=== PATIENT | male | born 1950 | race Caucasian/White ===

== ENCOUNTER 2017-02-01 13:38 | Inpatient (IN) | payer OTHER, MEDICARE ==
[~2017-02-01] VITALS: Ht 167.6 cm; Wt 72.0 kg
[2017-02-04] MEDS ORDERED: AMPI500C8 PO (11:46)
[2017-02-04] MEDS ORDERED: ROSU1TAB8 PO (12:54)
[2017-02-04] MEDS ORDERED: LISI-519 PO (13:03)
[2017-02-04] MEDS ORDERED: METH2.5T PO (13:04)
[2017-02-04] MEDS ORDERED: NAPR500T PO (13:04)
[2017-02-04] MEDS ORDERED: CENTCHW4 PO (13:05)
[2017-02-04] MEDS ORDERED: CO Q10CA PO (13:09)
[2017-02-04] MEDS ORDERED: ACET25TA2 PO (13:09)
[2017-02-04] MEDS ORDERED: MSM1000C PO (13:09)
[2017-02-04] MEDS ORDERED: FOLI1TAB6 PO (13:09)
[2017-02-17] MEDS ORDERED: CHLORHEXIDINE GLUCONATE 2 % 1 PACK (2 CLOTHS) TOPICAL PRN (05:45)
[2017-02-17] MEDS ORDERED: LACTATED RINGER'S 1000 ML IV PRN (05:45)
[2017-02-17] MEDS ORDERED: ceFAZolin 2 GM PREMIX 50 ML IV SCH (05:45)
[2017-02-17] MEDS ORDERED: VANCOMYCIN 1000 MG/NS 250 ML (for <70 kg) IV SCH ×2 (05:45)
[2017-02-17] MEDS ORDERED: POVIDONE IODINE 5% (ANTISEPSIS KIT) 4 APPLICATIONS EACH NARE PRN (05:45)
[2017-02-17] MEDS ORDERED: SODIUM CHLORID 0.9% 500 ML IV PRN (05:45)
[2017-02-17] MEDS ORDERED: INSULIN HUMAN REGULAR 1,000 UNITS/10 ML VIAL SQ PRN (05:45)
[2017-02-17] MEDS ORDERED: CHLORHEXIDINE GLUCONATE 4% SOLN 120 ML BTL TOPICAL SCH (05:45)
[2017-02-17] MEDS ORDERED: METOPROLOL TARTRATE 25 MG TAB PO PRN (05:45)
[2017-02-17] MEDS ORDERED: GENTAMICIN SULFATE 80 MG/2 ML VIAL ONE (06:27)
[2017-02-17] MEDS ORDERED: VANCOMYCIN HCL 1000 MG VIAL ONE (06:28)
[2017-02-17 06:36] LABS: BLOOD, URINE NEG (NEG); GLUCOSE,URINE NEG (NEG); KETONE, URINE NEG (NEG); NITRITE,URINE NEG (NEG); URINE COLOR YELLOW (YELLW/STRAW)
[2017-02-17 06:37] LABS: COMMENT (UR) CATH-CULT NOT IND; CULTURE IF INDICATED CATH CULTURE NOT IND
[2017-02-17] MEDS ORDERED: EXPAREL PERI-ARTICULAR INJECTION (TOTAL VOL. 60 ML) P-ARTICULR SCH ×2 (07:00)
[2017-02-17] MEDS ORDERED: TRANEXAMIC ACID INJ 1,080 MG in SODIUM CHLORIDE 0.9% INJ 100 ML IV SCH (07:00)
--- NOTE | 2017-02-17 09:23 | RADRPT ---
EXAM DATE/TIME: 02/17/2017 07:23 [facility] COMPARISON: No previous studies available for comparison. INDICATIONS : Left total hip arthroplasty. MEDICAL HISTORY : None. SURGICAL HISTORY : None. ENCOUNTER: Initial ACUITY: 1 day PAIN SCORE: Non-responsive. LOCATION: Left hip. FINDINGS: Total hip arthroplasty is in place. The femoral and acetabular components appear intact. There are no signs of loosening or fracture. CONCLUSION: Intact total hip prosthesis for tacho. Darvin Rich MD on February 17, 2017 at 9:21 Board Certified Radiologist. This report was verified electronically.
--- NOTE | 2017-02-17 09:25 | PD.OP ---
cc: Idris Meyers MD Operative Report Date of Surgery: Feb 17, 2017 Preoperative Diagnosis: Severe left hip osteoarthritis Postoperative Diagnosis: Procedure: Left total hip arthroplasty by anterior approach Surgeon: Idris Meyers [place] Operator(s): Reece Kuhn PA-C The surgical procedure was assisted by my physician clinical project assistant. My P.A. presence was necessary throughout this case for the manipulation and positioning of the surgical extremity. My P.A. was assisting me throughout the duration of this procedure. The skill set of a physician clinical project assistant was medically necessary to complete this procedure. During the surgical case the surgical sales representative was working at the back table and the physician clinical project assistant was directly assisting me. Operation and Findings: PLAN OF ACTIVITY Weight bear as tolerated. DRAINS: 7-mm AG drain. IMPLANTS USED DePuy Corail size [9] collared KLA stem with a size [50] Kenner Gription cup, [50/32] Altrx poly liner, and a [32+1.5] ceramic Biolox ceramic head. DETAILS OF PROCEDURE: This patient has a long history of hip pain. Patient was found to have severe osteoarthritis. The patient had radiographic evidence of joint space narrowing with [id number] arthritis and osteophytes around the acetabulum as well as the femoral head. There was also some cystic changes. The patient failed conservative treatment with pain medications, anti-inflammatories, physical therapy, assistive devices including a cane, as well as therapeutic injection of the hip. Patient's hip arthritis was limiting his ability to ambulate and perform activities of daily living. The patient wished to proceed with surgery and informed consent was obtained. Operative site was marked. I discussed both posterior approach and anterior approach with the patient and decision was made for anterior approach. Patient was brought to OR and placed on OR table. IV sedation and general anesthesia was administered by anesthesiologist. Patient positioned on a Grace table and was given IV antibiotics. Time-out procedure was performed. The hip and thigh were prepped with alcohol followed by Hibiclens. The thigh was draped in the usual sterile fashion. Clean Air Suite was used for this procedure. The procedure began with a 5-inch incision over the anterolateral thigh. Subcutaneous tissue was dissected with Bovie. The fascia over the tensa fasciae latae was incised. Care was taken to avoid injury to the lateral femoral cutaneous nerve. The tensor muscle was retracted laterally. Sartorius was retracted medially. Retractors were now placed. The reflected head of the rectus is now elevated. A capsulotomy was performed over the anterior head capsule. Sutures were placed to help retract the capsule. At this point the femoral head and neck were identified. With soft tissue protected, oscillating saw was used to make a cut through the femoral neck, the femoral head was now removed. At this point attention was turned to preparation of the acetabulum. The labrum was excised. The acetabulum was sequentially reamed up to size [50]. A Kenner cup was now placed. Fluoroscopy was used to aid in identification of appropriate version. Cup was fully impacted and found to have excellent fit. Hole eliminator was now placed. The liner was now impacted into the cup. At this point the hip was externally rotated. A hook was placed around the proximal femur. The capsule was released off the lateral and medial femur. The hip was now extended and adducted. Retractors were placed around the proximal femur to allow for exposure. A box osteotome was used to remove the lateral cortex of the femoral neck. A broach was used to help lateralize the prosthesis. Canal finder was used to create a path down the canal. Next, the canal was sequentially broached up to size [9]. This was found to be an excellent fit. Calcar planer was placed. A standard head was placed, and the hip was reduced. The hip was found to have excellent stability with good range of motion. The leg lengths were measured under fluoroscopy and found to be equal compared to preoperatively. Trial broach was removed. The Corail stem was opened. Stem was fully impacted into the proximal femur in appropriate version. The femoral head was placed. The hip was again reduced. Fluoroscopy confirmed excellent alignment of prosthesis. The wound was thoroughly irrigated and capsule was closed with #1 Vicryl. The fascia over the tensor fasciae muscle was closed with #1 Vicryl, subcutaneous tissue was closed with 3-0 Vicryl and the skin was closed with leland and Dermabond skin closure. The capsule layers, muscle, and subcutaneous tissue were injected with a mixture of saline and bupivicaine. Dressings were applied. The patient was transferred to Recovery Room in stable condition. Idris Meyers MD Feb 17, 2017 09:24
[2017-02-17] MEDS ORDERED: MORPHINE SULFATE 4 MG/ML INJ IV PUSH PRN (09:30)
[2017-02-17] MEDS ORDERED: NALOXONE HCL 0.4 MG/ML AMP IV PRN (09:30)
[2017-02-17] MEDS ORDERED: METHOTREXATE 2.5 MG TAB PO SCH (09:30)
[2017-02-17] MEDS ORDERED: SODIUM CHLORIDE 0.9% FLUSH 5 ML FLUSH IVF PRN (09:30)
[2017-02-17] MEDS ORDERED: ONDANSETRON HCL 4 MG/2 ML VIAL IVP PRN (09:30)
[2017-02-17] MEDS ORDERED: Post-op Orders (for Pharmacy) MISC XX ONE (09:30)
[2017-02-17] MEDS ORDERED: DO NOT ADM ANY ANTICOAGULANT DRUGS PRN (09:38)
[2017-02-17] MEDS ORDERED: *morphine SULFATE 8 MG/ML PERIprocedure ONLY ONE ×3 (09:48→14:38)
[2017-02-17] MEDS ORDERED: MIDAZOLAM HCL 2 MG/2 ML VIAL ONE (09:49)
[2017-02-17] MEDS ORDERED: fentaNYL CITRATE 250 MCG/5 ML AMP ONE (09:49)
[2017-02-17] MEDS: LACTATED RINGER'S 1000 ML INJ 1,000 ML IV SCH (10:00)
[2017-02-17] MEDS ORDERED: *HYDROmorphone PF 1 MG VIAL PERIprocedural Use ONLY ONE (10:25)
[2017-02-17] MEDS ORDERED: TRANEXAMIC ACID INJ 1,000 MG in SODIUM CHLORIDE 0.9% INJ 100 ML IV ONE (10:30)
--- NOTE | 2017-02-17 10:30 | RADRPT ---
EXAM DATE/TIME: 02/17/2017 09:36 [facility] COMPARISON: No previous studies available for comparison. INDICATIONS : Post hardware placement left hip MEDICAL HISTORY : None. SURGICAL HISTORY : None. ENCOUNTER: Subsequent ACUITY: 1 day PAIN SCORE: Non-responsive. LOCATION: Left Hip FINDINGS: Total hip arthroplasty is in place. The femoral and acetabular components appear intact. There are no signs of loosening or fracture. CONCLUSION: Intact total hip prosthesis for technique. Darvin Rich MD on February 17, 2017 at 10:28 Board Certified Radiologist. This report was verified electronically.
[2017-02-17] MEDS ORDERED: XARE10TA PO (10:32)
[2017-02-17] MEDS ORDERED: WALKER/ADULT/FO1 MIS (10:32)
[2017-02-17] MEDS ORDERED: *LABETALOL HCL 100 MG/20 ML VIAL PERIprocedural Use ONLY ONE (10:32)
[2017-02-17] MEDS ORDERED: HYDR-3583 PO (10:32)
--- NOTE | 2017-02-17 10:33 | HHI.FF ---
Face to Face Verification Diagnosis: (1) S/P total hip arthroplasty Physical Therapy Gait training Hip: Total hip, Protocol: Left Left LE Weight Bearing: WB as tolerated Nursing Dressing Changes: Daily dressing change, Coverderm/Primapore (begin adding xeroform on POD 10) I have seen patient Sanjay Sanchez on 02/17/17. My clinical findings support the need for the requested home health care services because: Ltd mobility - disease progression I certify that my clinical findings support that this patient is homebound because: Post-op weakness Reece Kuhn Feb 17, 2017 10:33
[2017-02-17] MEDS: KETOROLAC TROMETHAMINE 30 MG/ML (IVP) VIAL IV PUSH SCH (10:46)
[2017-02-17] MEDS ORDERED: PHENYLEPH/NS 1000 MCG/10 ML SYR IV ONE (11:31)
[2017-02-17] MEDS ORDERED: ePHEDrine/NS 25 MG/5 ML SYR IV ONE (11:31)
[2017-02-17] MEDS ORDERED: ONDANSETRON HCL 4 MG/2 ML VIAL IV PUSH ONE (11:31)
[2017-02-17] MEDS ORDERED: LACTATED RINGER'S 1000 ML INJ 1,000 ML IV ONE (11:31)
[2017-02-17] MEDS ORDERED: NEOSTIGMINE 3 MG/3 ML SYR IV ONE (11:31)
[2017-02-17] MEDS ORDERED: PROPOFOL 200 MG/20 ML AMP IV ONE (11:31)
[2017-02-17] MEDS ORDERED: ACETAMINOPHEN 1000 MG/100 ML VIAL IV ONE (12:00)
[2017-02-17] MEDS: ceFAZolin 2 GM PREMIX 50 ML IV SCH ×2 (13:49→20:55)
[2017-02-17] MEDS: ACETAMINOPHEN/HYDROcodone 325 MG/7.5 MG TAB PO PRN ×2 (15:32→20:55)
[2017-02-17] MEDS: VANCOMYCIN INJ 1,000 MG in SODIUM CHLOR 0.9% 250 ML INJ 250 ML IV SCH (17:41)
[2017-02-17 20:35] VITALS: BP 126/77; PULSE 85; RESP 17; TEMP 97.6; O2SAT 98
[2017-02-17] MEDS: SODIUM CHLORIDE 0.9% FLUSH 5 ML FLUSH IVF SCH (21:00)
[2017-02-18] MEDS: KETOROLAC TROMETHAMINE 30 MG/ML (IVP) VIAL IV PUSH SCH ×2 (00:21→13:02)
[2017-02-18 00:35] VITALS: BP 108/63; PULSE 78; RESP 17; TEMP 97.9; O2SAT 97
[2017-02-18] MEDS: ceFAZolin 2 GM PREMIX 50 ML IV SCH (01:55)
[2017-02-18] MEDS: ACETAMINOPHEN/HYDROcodone 325 MG/7.5 MG TAB PO PRN (01:58)
[2017-02-18 04:30] VITALS: BP 114/80; PULSE 75; RESP 18; TEMP 97; O2SAT 99
[2017-02-18] MEDS: ACETAMINOPHEN/HYDROcodone 325 MG/10 MG TAB PO PRN ×3 (05:35→13:02)
[2017-02-18] MEDS: VANCOMYCIN INJ 1,000 MG in SODIUM CHLOR 0.9% 250 ML INJ 250 ML IV SCH (05:36)
--- NOTE | 2017-02-18 07:01 | PD.ORT.PN ---
Subjective Subjective Remarks Sanjay is status post left total hip arthroplasty on 02/17/17. He is doing very well. Pain is well-controlled. He has been ambulating independently. Objective Vitals Vital Signs Date Time Temp Pulse Resp B/P (MAP) Pulse Ox O2 Delivery O2 Flow Rate FiO2 02/18/17 00:35 97.9 78 17 108/63 (78) 97 02/17/17 20:35 97.6 85 17 126/77 (93) 98 02/17/17 15:00 80 24 129/78 (95) 99 Room Air 02/17/17 14:00 75 19 141/75 (97) 100 Room Air 02/17/17 13:00 73 20 142/71 (94) 100 Room Air 02/17/17 12:00 98.0 71 15 156/83 (107) 100 Nasal Cannula 2 02/17/17 11:00 72 15 156/83 (107) 100 Nasal Cannula 2 02/17/17 10:45 70 14 162/81 (108) 100 Nasal Cannula 2 02/17/17 10:30 72 16 165/81 (109) 100 Nasal Cannula 2 02/17/17 10:15 81 17 187/83 (117) 100 Nasal Cannula 2 02/17/17 10:00 84 16 150/86 (107) 100 Nasal Cannula 2 02/17/17 09:44 98.7 89 18 147/88 (107) 97 Nasal Cannula 4 I/O 02/17/17 02/17/17 02/17/17 02/18/17 02/18/17 02/18/17 07:00 15:00 23:00 07:00 15:00 23:00 Intake Total 2060 ml 480 ml Output Total 250 ml 80 ml 10 ml Balance 1810 ml 400 ml -10 ml Intake Oral 480 ml IV Total 460 ml Other 1600 ml Output Drainage Total 150 ml 80 ml 10 ml Estimated Blood Loss 100 ml # Voids 1 # Bowel Movements 0 Imaging Last 24 hours Impressions Hip and Pelvis X-Ray 02/17/17926 Signed Impressions: Service Date/Time: January 09:36 - CONCLUSION: Intact total hip prosthesis for technique. Darvin Rich MD Objective Remarks Sanjay is awake and alert. Incision is clean dry and intact. Minimal pain with gentle hip motion. Neurovascularly intact left lower extremity Assessment & Plan Assessment and Plan Sanjay is doing Very well postop day #1 status post left total hip arthroplasty Weight-bear as tolerated Discharge home today with home health care Follow-up 2 weeks Anahy/Idris Islas MD Feb 18, 2017 07:01
[2017-02-18 07:16] LABS: HEMATOCRIT 35.1 % (39.0-51.0); REVIEW FLAG FINAL
[2017-02-18 07:53] VITALS: BP 130/70; PULSE 76; RESP 18; TEMP 99; O2SAT 99
[2017-02-18] MEDS ORDERED: FOLIC ACID 1 MG TAB PO SCH (09:00)
[2017-02-18] MEDS ORDERED: METHYLSULFONYLMETHANE 1000 MG PO SCH (09:00)
[2017-02-18] MEDS ORDERED: ATORVASTATIN 40 MG TAB PO SCH (09:00)
[2017-02-18] MEDS ORDERED: LISINOPRIL 5 MG TAB PO SCH (09:00)
[2017-02-18] MEDS ORDERED: COENZYME Q10 30 MG PO SCH (09:00)
[2017-02-18] MEDS: SODIUM CHLORIDE 0.9% FLUSH 5 ML FLUSH IVF SCH (09:00)
[2017-02-18] MEDS ORDERED: MULTIVITAMINS/MINERALS THERAPEUTIC TAB PO SCH (09:00)
[2017-02-18] MEDS ORDERED: ENOXAPARIN SODIUM 40 MG/0.4 ML SYRINGE SQ SCH (10:00)
[2017-02-18 10:27] VITALS: O2SAT 96
[2017-02-18] MEDS: LACTATED RINGER'S 1000 ML INJ 1,000 ML IV SCH (11:00)
[2017-02-18 12:00] VITALS: BP 118/81; PULSE 90; RESP 18; TEMP 97.3; O2SAT 98
--- NOTE | 2017-02-18 12:19 | HHI.DS ---
Discharge Summary Admission Date Feb 17, 2017 at 05:12 Discharge Date: Feb 18, 2017 Admitting Diagnosis Left hip osteoarthritis Diagnosis: (1) S/P total hip arthroplasty Diagnosis: Principal ICD Codes: Z96.649 - Presence of unspecified artificial hip joint Procedures Left total hip arthroplasty with anterior approach Brief History CBC/BMP: 02/18/17 0640 Significant Findings Laboratory Tests Test 02/17/17 06:10 02/18/17 06:40 Hemoglobin 12.0 GM/DL (13.0-17.0) Hematocrit 35.1 % (39.0-51.0) PE at Discharge Sanjay is awake and alert. Incision is clean dry and intact. Minimal pain with gentle hip motion. Neurovascularly intact left lower extremity Hospital Course Patient was admitted from outpatient basis for elective total hip arthroplasty of the left hip. He tolerated the procedure well. He was out of bed and ambulating with minimal discomfort on postoperative day 0. On postop day 1, he was hemodynamically stable, out of bed on his own, pain controlled, and fit for discharge home. He'll be discharged home today with home healthcare service. He will keep his incision clean and dry. He'll do daily dressing changes. He will follow-up in the office in [address] Meyers or his PA. Pt Condition on Discharge: Good Discharge Disposition: Disch w/ Home Health Serv Discharge Instructions Diet Instructions: As Tolerated, No Restrictions Activities You Can Perform: Weight Bearing as Sade Follow up Referrals: Orthopedics - 2 Weeks @ [facility] with Idris Meyers MD New Medications: Hydrocodone-Acetaminophen (Hydrocodone-Acetaminophen) 10-325 mg Tab 1 TAB PO Q4H PRN for PAIN, #60 TAB 0 Refills Rivaroxaban (Xarelto) 10 Mg Tab 10 MG PO DAILY for Blood Clot Prevention, #14 TAB 0 Refills Walker/Adult/Folding (Walker/Adult/Folding) 1 Mis Mis EA .ROUTE DIRECTED, #1 0 Refills Continued Medications: Acetaminophen/Diphenhydramine (Acetaminophen Pm Caplet) 1 Each Tablet 2 TAB PO HS Ampicillin (Ampicillin) 500 Mg Cap 500 MG PO Q6HR, CAP Coenzyme Q10 (Ubidecarenone) (Co Q 10) 10 Mg Cap 30 MG PO DAILY Folic Acid (Folic Acid) 1 Mg Tablet 1 TAB PO DAILY Lisinopril (Lisinopril) 5 Mg Tab 5 MG PO DAILY for Blood Pressure Management, #30 TAB 0 Refills Methotrexate (Methotrexate) 2.5 Mg Tab 10 TAB PO Q7D, TAB 0 Refills Methylsulfonylmethane (Msm) 1,000 Mg Cap 1000 MG PO DAILY, CAP 0 Refills Multiple Vitamins W/ Minerals (Centrum) 1 Chew 1 TAB PO DAILY for Nutritional Supplement, TAB 0 Refills Rosuvastatin (Rosuvastatin) 20 Mg Tab 20 MG PO DAILY for Cholesterol Management, #30 TAB 0 Refills Discontinued Medications: Naproxen (Naproxen) 500 Mg Tab 500 MG PO DAILY, #60 TAB 0 Refills Reece Kuhn Feb 18, 2017 12:19
[2017-02-18] MEDS ORDERED: DOCUSATE SODIUM 100 MG CAP PO SCH (21:00)
== END 2017-02-18 16:21 | disposition home health service (06) | DRG 470 ==
LOC: HSDI 02-17 05:12 → N06A 02-17 15:11
PROVIDERS: ADMIT Orthopaedic Surgery Orthopaedic Trauma; ATTEND Orthopaedic Surgery Orthopaedic Trauma
PROC: 0SRB04A Replacement of Left Hip Joint with Ceramic on Polyethylene Synthetic Substitute, Uncemented, Open Approach (ICD-10-PCS; principal; 2017-02-17 06:48)
DX: M16.12 Unilateral primary osteoarthritis, left hip (principal); I10 Essential (primary) hypertension; F41.9 Anxiety disorder, unspecified; E78.5 Hyperlipidemia, unspecified
CPT/HCPCS: 73501; 73502; 76000; 81001; 85014; 85018; 86850; 86900; 86901; C1776; C9290; J0131; J0690; J1170; J1580; J1650; J1885; J2250; J2270; J2370; J2405; J2710; J3010; J3370; J7050; J7120

== ENCOUNTER → 2017-02-04 | Outpatient (CLI) | payer OTHER ==
[~2017-02-04] MED LIST: ACET25TA2 PO; AMPI500C8 PO; CENTCHW4 PO; CO Q100C9 PO; CO Q10CA PO; DIPH1TAB36 PO; FOLI1 PO; FOLI1TAB6 PO; HYDR-3129 PO; HYDR-3583 PO; LISI-519 PO; METH2.5 PO; METH2.5T PO; MSM1000C PO; NAPR-571 PO; NAPR500T PO; ROSU1TAB8 PO; SERT-132 PO; TAB-TAB PO; VITA10004 PO; VITA400C70 PO; WALKER/ADULT/FO1 MIS; XARE10TA PO; ZOCO40TA PO
--- NOTE | 2017-02-05 17:18 | EKG ---
Date Performed: 02/04/2017 Time Performed: 12:32:30 PTAGE: 66 years EKG: Sinus rhythm with PVC(s) with borderline 1st degree A-V block. rSr'(V1) - probable normal variant Borderline ECG Compared to prior tracing no significant change PREVIOUS TRACING : 07/01/2015 07.16 DOCTOR: Norberto Valverde Interpretating Date/Time 02/05/2017 17:15:45
== END ==
LOC: HCAV 12:22
PROVIDERS: ATTEND Orthopaedic Surgery Orthopaedic Trauma
DX: Z01.810 Encounter for preprocedural cardiovascular examination (principal)
CPT/HCPCS: 93005

== ENCOUNTER → 2017-02-04 | Outpatient (CLI) | payer OTHER | LOC: CPRE 11:29 | PROVIDERS: ATTEND Orthopaedic Surgery Orthopaedic Trauma | DX: Z01.812 Encounter for preprocedural laboratory examination (principal); M79.609 Pain in unspecified limb ==